=== PATIENT | female | born 1975 | race Caucasian/White ===

== ENCOUNTER 2021-12-06 11:53 | Emergency (ER) | payer MEDICARE, MEDICAID ==
[~2021-12-06] VITALS: Ht 160 cm; Wt 81.6 kg
[2021-12-06 13:40] VITALS: BP 139/93
[2021-12-06 13:55] LABS: Basophils # (auto) 0 10 ^3/uL (0-0.2); Basophils % (auto) 0.4 % (0.0-2.0); Eosinophils # (auto) 0.1 10 ^3/uL (0-0.8); Lymphocytes # (auto) 2.6 10 ^3/uL (0.4-5.4); Lymphocytes % (auto) 25.7 % (10.0-50.0); Monocytes # (auto) 0.6 10 ^3/uL (0-1.3); Neutrophils # (auto) 6.8 10 ^3/uL (1.6-8.6)
[2021-12-06 13:56] LABS: Eosinophils % (auto) 0.7 % (0.0-7.0); Hematocrit 35.7 % (36.0-46.0); Mean Corpuscular Hemoglobin 26.9 pg (28.0-32.0); Mean Corpuscular Hgb Conc. 33.7 g/dL (32.0-36.0); Mean Corpuscular Volume 79.8 fL (80.0-100.0); Monocytes % (auto) 5.7 % (0.0-12.0); Neutrophils % (auto) 67.5 % (37.0-80.0); Nucleated Red Blood Cells % 0.1 %; Red Blood Cells 4.48 10^6/uL (4.0-5.20); Red Cell Distribution Width 15.7 % (11.8-14.3); White Blood Cell 10.1 10^3/uL (4.4-10.8)
[2021-12-06 14:12] LABS: Albumin 3.4 g/dL (3.4-5.0); BUN/Creatinine Ratio 10.2; Calcium 8.5 mg/dL (8.5-10.1); Potassium 4.2 mmol/L (3.5-5.1)
[2021-12-06 14:14] LABS: Bilirubin, Total 0.1 mg/dL (0.2-1.0); Total Protein 7.1 g/dL (6.4-8.2)
[2021-12-06 15:39] LABS: Urine Bacteria NONE SEEN /hpf (None Seen); Urine Blood 3+ /uL (Negative); Urine Mucus FEW (None Seen); Urine Specific Gravity 1.016 (1.001-1.035); Urine WBC 44 /hpf (0 - 5)
[2021-12-06] MEDS ORDERED: NITR-87 PO (16:07)
== END 2021-12-06 16:19 | disposition home or self-care (01) ==
LOC: EDBD 11:53 → ER 11:53
DX: R51.9 Headache, unspecified (principal); N39.0 Urinary tract infection, site not specified; E44.1 Mild protein-calorie malnutrition; Z68.31 Body mass index [BMI] 31.0-31.9, adult
CPT/HCPCS: 36415; 70450; 80053; 81001; 85025; 93005